=== PATIENT | male | born 1975 | race Two or more races ===

== ENCOUNTER 2019-11-17 18:34 | Emergency (ER) | payer OTHER ==
[~2019-11-17] VITALS: Ht 175.3 cm; Wt 75.0 kg
[2019-11-17] MEDS ORDERED: VERA180T11 PO (19:36)
[2019-11-17] MEDS ORDERED: TRAN1TAB18 PO (19:36)
[2019-11-17 19:51] VITALS: BP 178/98
== END 2019-11-17 19:50 | disposition home or self-care (01) ==
LOC: ER 18:35
DX: I10 Essential (primary) hypertension (principal); Z79.899 Other long term (current) drug therapy; Z76.0 Encounter for issue of repeat prescription
CPT/HCPCS: 99281